=== PATIENT | female | born 1970 | race Caucasian/White ===

== ENCOUNTER 2022-11-11 23:19 | Emergency (ER) | payer SELFPAY ==
[~2022-11-11] VITALS: Ht 162.6 cm; Wt 61.6 kg
[2022-11-11 23:29] VITALS: BP 118/62
[2022-11-12] MEDS ORDERED: TETanus/Pertussis (Acell)/Diphther VAC/PF (Tdap-Adult) 0.5ml syringe IMVAC ONE (00:15)
[2022-11-12] MEDS ORDERED: LIDOcaine 1%/PF 5ML 10 MG/ML VIAL IJ ONE (00:20)
[2022-11-12] MEDS ORDERED: SULF1TAB49 PO (00:33)
[2022-11-12] MEDS ORDERED: LIDOcaine 1% (10mg/ml)w/preservative inj. 20ml MDV ONE (02:02)
== END 2022-11-12 02:29 | disposition home or self-care (01) ==
LOC: ER 23:21
DX: S62.601B Fracture of unspecified phalanx of left index finger, initial encounter for open fracture (principal); S60.451A Superficial foreign body of left index finger, initial encounter; Z88.5 Allergy status to narcotic agent; Z88.6 Allergy status to analgesic agent; Z79.899 Other long term (current) drug therapy; Z87.891 Personal history of nicotine dependence; W45.8XXA Other foreign body or object entering through skin, initial encounter; Y93.89 Activity, other specified; Y92.89 Other specified places as the place of occurrence of the external cause; Y99.8 Other external cause status
CPT/HCPCS: 29130; 73140; 90471; 90715; 99284; J3490

== ENCOUNTER 2023-10-02 00:57 | Emergency (ER) | payer SELFPAY ==
[~2023-10-02] VITALS: Ht 162.6 cm; Wt 59.1 kg
[2023-10-02 02:36] VITALS: O2SAT 98
[2023-10-02] MEDS: ondansetron/PF 4mg/2ml inj IV ONE (03:53)
[2023-10-02] MEDS: morphine 4 MG/ML inj SYRINge IV ONE (03:54)
[2023-10-02] MEDS: piperacillin/tazo 3.375gm/50ml 50 ML IV ONE (03:54)
[2023-10-02] MEDS: normal saline 1000ML IV soln IV ONE (03:54)
[2023-10-02 04:33] LABS: BASOPHILS # (AUTO) 0.1 X10'3 (0-0.2); BASOPHILS % (AUTO) 0.8 % (0-1); EOSINOPHILS # (AUTO) 0.2 X10'3 (0-0.9); EOSINOPHILS % (AUTO) 2.6 % (0-6); HEMATOCRIT 38.7 % (35.0-45.0); HEMOGLOBIN 13.1 g/dl (12.0-16.0); LYMPHOCYTES # (AUTO) 2.6 X10'3 (1.1-4.8); LYMPHOCYTES % (AUTO) 37.3 % (21-51); MEAN CORPUSCULAR HEMOGLOBIN 29.5 PG (27.0-31.0); MEAN CORPUSCULAR HGB CONC 33.8 g/dL (33.0-36.5); MEAN CORPUSCULAR VOLUME 87.1 FL (78-98); MEAN PLATELET VOLUME 6.6 FL (7.4-10.4); MONOCYTES # (AUTO) 0.5 X10'3 (0-0.9); MONOCYTES % (AUTO) 7.2 % (2-12); NEUTROPHILS # (AUTO) 3.6 X10'3 (1.8-7.7); NEUTROPHILS % (AUTO) 52.1 % (42-75); PLATELET COUNT 409 X10'3 (140-440); RED BLOOD COUNT 4.45 X10'6 (4.20-5.60); RED CELL DISTRIBUTION WIDTH 13.3 % (11.5-14.5); WHITE BLOOD COUNT 6.8 X10'3 (4.5-11.0)
[2023-10-02 04:41] LABS: ALBUMIN 3.1 G/DL (3.4-5.0); ANION GAP 11 (8-16); BLOOD UREA NITROGEN 21 MG/DL (7-18); BUN/CREATININE RATIO 28.4 (10.0-20.0); CALCIUM 9.1 MG/DL (8.5-10.1); CHLORIDE 106 MMOL/L (99-107); CREATININE 0.74 MG/DL (0.40-0.90); GLUCOSE 93 MG/DL (70-104); POTASSIUM 3.7 MMOL/L (3.5-5.1); SODIUM 143 MMOL/L (135-145); TOTAL CARBON DIOXIDE 26.3 MMOL/L (24-32); eCRCL 76 ML/MIN; eGFR 82 ML/MIN
[2023-10-02] MEDS: vancomycin/NS 1 GM ADD-VANTAGE 250 ML IV ONE (04:41)
[2023-10-02 05:29] VITALS: BP 106/50; PULSE 95; RESP 13
[2023-10-02] MEDS ORDERED: SULF1TAB49 PO (05:34)
[2023-10-02] MEDS ORDERED: CEPH-585 PO (05:34)
[2023-10-02] MEDS ORDERED: HYDR-3965 PO (05:34)
[2023-10-02 06:15] VITALS: TEMP 98.1
== END 2023-10-02 06:23 | disposition home or self-care (01) ==
LOC: ER 00:58
DX: S80.11XA Contusion of right lower leg, initial encounter (principal); L03.116 Cellulitis of left lower limb; Z88.5 Allergy status to narcotic agent; W22.8XXA Striking against or struck by other objects, initial encounter; Y93.89 Activity, other specified; Y92.89 Other specified places as the place of occurrence of the external cause; Y99.8 Other external cause status
CPT/HCPCS: 36415; 73590; 73610; 80048; 83605; 84145; 85025; 87040; 96365; 96366; 96368; 96375; 99285; J2270; J2405; J2543; J3370; J7030